=== PATIENT | female | born 1985 | race African-American/Black ===

== ENCOUNTER 2016-09-14 14:02 | Emergency (ER) | payer OTHER ==
[~2016-09-14] VITALS: Ht 180.3 cm; Wt 70.0 kg
[~2016-09-14 14:02] MED LIST: PREN-88 PO; PREN1TAB33
[2016-09-14] MEDS ORDERED: SODIUM CHLORIDE 0.9% 1,000 ML IV ONE ×2 (14:30→16:15)
[2016-09-14] MEDS ORDERED: FAMOTIDINE 20MG TABLET PO ONE (14:30)
[2016-09-14] MEDS ORDERED: ONDANSETRON 4MG ODT PO ONE (14:30)
[2016-09-14 15:02] LABS: BASOPHILS % 0.4 % (0.0-2.0); HEMATOCRIT. 42.5 % (36.0-48.0); HEMOGLOBIN. 14.6 g/dL (12.0-16.0); LYMPHOCYTES % 10.4 % (20.0-50.0); MEAN CORPUSCULAR HEMOGLOBIN 31.1 pg (28.0-32.0); MEAN PLATELET VOLUME 7.2 fl (7.4-10.4); MONOCYTES % 3.2 % (2.0-8.0); PLATELET 302 x1000/uL (130-400); RED BLOOD CELL COUNT 4.67 mill/uL (4.2-5.4); RED CELL DISTRIBUTION WIDTH 13.6 % (11.6-14.6)
[2016-09-14 15:16] LABS: CARBON DIOXIDE 24 mEq/L (21-32); CHLORIDE 109 mEq/L (98-107)
[2016-09-14] MEDS ORDERED: ONDANSETRON HCL 4MG/2ML VIAL IV NR (16:00)
[2016-09-14] MEDS ORDERED: METOCLOPRAMIDE HCL 10MG/2ML VIAL IV SCH (17:30)
[2016-09-14] MEDS ORDERED: FAMOTIDINE 20MG/2ML VIAL IV SCH (17:30)
[2016-09-14 20:55] VITALS: BP 113/67
== END 2016-09-14 20:57 | disposition home or self-care (01) ==
LOC: ER 14:49
DX: R00.1 Bradycardia, unspecified (principal); R11.2 Nausea with vomiting, unspecified; Z88.0 Allergy status to penicillin
CPT/HCPCS: 36415; 80053; 83690; 85025; 93005; 96361; 96374; 96375; 99285; J2405; J2765; J3490; J7030; Q0162; Z7610

== ENCOUNTER 2016-09-15 12:53 | Emergency (ER) | payer OTHER ==
[~2016-09-15] VITALS: Ht 162.6 cm; Wt 55.0 kg
[2016-09-15] MEDS ORDERED: SODIUM CHLORIDE 0.9% 1,000 ML IV ONE (14:03)
[2016-09-15] MEDS ORDERED: MAGNESIUM/ALUMINUM HYDROXIDE/SIMETHICONE 30ML UDC PO STA (14:03)
[2016-09-15] MEDS ORDERED: FAMOTIDINE 20MG/2ML VIAL IV STA (14:03)
[2016-09-15] MEDS ORDERED: ONDANSETRON HCL 4MG/2ML VIAL IV STA (14:03)
[2016-09-15] MEDS ORDERED: MORPHINE SULFATE 4 MG/ML CPJ (NOT FOR IM USE) IV STA (14:03)
[2016-09-15 15:01] LABS: CLARITY URINE CLOUDY (CLEAR); COLOR URINE YELLOW (YELLOW); GLUCOSE URINE NEGATIVE (NEGATIVE); KETONES URINE 3+ (NEGATIVE); LEUKOCYTE ESTERASE URINE NEGATIVE (NEGATIVE); NITRITE URINE NEGATIVE (NEGATIVE); OCCULT BLOOD URINE NEGATIVE (NEGATIVE); PROTEIN URINE 1+ (NEGATIVE); SPECIFIC GRAVITY URINE 1.031 (1.005-1.030)
[2016-09-15 15:03] LABS: INR 1.1; PROTHROMBIN TIME 11.4 sec
[2016-09-15 15:08] LABS: BASOPHILS % 0.4 % (0.0-2.0); HEMATOCRIT. 38.1 % (36.0-48.0); HEMOGLOBIN. 13.1 g/dL (12.0-16.0); LYMPHOCYTES % 15.9 % (20.0-50.0); MEAN CORPUSCULAR HEMOGLOBIN 31.3 pg (28.0-32.0); MEAN CORPUSCULAR VOLUME 90.9 fL (81.0-99.0); MEAN PLATELET VOLUME 7.6 fl (7.4-10.4); NEUTROPHILS % 75.7 % (40.0-76.0); PLATELET 267 x1000/uL (130-400); RED BLOOD CELL COUNT 4.19 mill/uL (4.2-5.4); RED CELL DISTRIBUTION WIDTH 13.3 % (11.6-14.6)
[2016-09-15 15:13] LABS: HCG SCREEN NEGATIVE
[2016-09-15 15:14] LABS: CARBON DIOXIDE 26 mEq/L (21-32); CHLORIDE 107 mEq/L (98-107); ETHANOL BLOOD < 10 mg/dL
[2016-09-15 15:15] LABS: TROPONIN I < 0.02 ng/mL (0.00-0.04)
[2016-09-15 15:35] LABS: *AMPHETAMINES SCREEN URINE NEGATIVE (NEGATIVE); *BARBITURATES SCREEN URINE NEGATIVE (NEGATIVE); *BENZODIAZEPINES SCREEN URINE NEGATIVE (NEGATIVE); *COCAINE SCREEN URINE NEGATIVE (NEGATIVE); METHADONE URINE SCREEN NEGATIVE (NEGATIVE); OPIATES URINE SCREEN NEGATIVE (NEGATIVE); PHENCYCLIDINE URINE SCREEN NEGATIVE (NEGATIVE)
[2016-09-15 15:41] LABS: CANNABINOID URINE SCREEN PRESUMTIVE POSITIVE (NEGATIVE)
[2016-09-15 18:30] VITALS: BP 135/88
== END 2016-09-15 18:55 | disposition home or self-care (01) ==
LOC: ER 13:45
DX: K29.20 Alcoholic gastritis without bleeding (principal); Z88.0 Allergy status to penicillin
CPT/HCPCS: 36415; 71010; 76700; 80053; 80305; 81001; 83880; 84484; 84703; 85025; 85610; 93005; 96361; 96374; 96375; 99285; G0482; J2270; J2405; J3490; J7030; Z7610

== ENCOUNTER 2016-09-16 10:17 | Emergency (ER) | payer OTHER ==
[~2016-09-16] VITALS: Ht 188 cm; Wt 75.0 kg
[2016-09-16] MEDS ORDERED: ONDANSETRON 4MG ODT PO STA (14:34)
[2016-09-16] MEDS ORDERED: VISCOUS LIDOCAINE 2% 15 ML UDC PO STA (14:34)
[2016-09-16] MEDS ORDERED: MAGNESIUM/ALUMINUM HYDROXIDE/SIMETHICONE 30ML UDC PO STA (14:34)
[2016-09-16 15:38] LABS: BASOPHILS % 0.6 % (0.0-2.0); HEMOGLOBIN. 13.4 g/dL (12.0-16.0); LYMPHOCYTES % 12.2 % (20.0-50.0); MEAN CORPUSCULAR HEMOGLOBIN 31.4 pg (28.0-32.0); MEAN CORPUSCULAR VOLUME 91.4 fL (81.0-99.0); MEAN PLATELET VOLUME 7.3 fl (7.4-10.4); MONOCYTES % 4.7 % (2.0-8.0); NEUTROPHILS % 82.5 % (40.0-76.0); PLATELET 258 x1000/uL (130-400); RED BLOOD CELL COUNT 4.26 mill/uL (4.2-5.4); RED CELL DISTRIBUTION WIDTH 12.8 % (11.6-14.6)
[2016-09-16 15:42] LABS: CHLORIDE 105 mEq/L (98-107)
[2016-09-16 15:48] LABS: CARBON DIOXIDE 24 mEq/L (21-32)
[2016-09-16 16:15] VITALS: BP 151/90
== END 2016-09-16 17:13 | disposition home or self-care (01) ==
LOC: ER 11:08
DX: R10.13 Epigastric pain (principal); R11.10 Vomiting, unspecified; F12.10 Cannabis abuse, uncomplicated; Z88.0 Allergy status to penicillin
CPT/HCPCS: 36415; 80053; 83690; 85025; 99284; Q0162

== ENCOUNTER 2018-12-02 12:03 | Emergency (ER) | payer MEDICAID, OTHER ==
[~2018-12-02] VITALS: Ht 188 cm; Wt 82.0 kg
[2018-12-02 13:31] VITALS: BP 112/78
[2018-12-02] MEDS ORDERED: IBUPROFEN 600MG TABLET PO STA (15:23)
[2018-12-02 16:14] LABS: CLARITY URINE CLEAR (CLEAR); COLOR URINE YELLOW (YELLOW); KETONES URINE 1+ (NEGATIVE); LEUKOCYTE ESTERASE URINE 2+ (NEGATIVE); NITRITE URINE NEGATIVE (NEGATIVE); OCCULT BLOOD URINE 1+ (NEGATIVE); PROTEIN URINE TRACE (NEGATIVE); SPECIFIC GRAVITY URINE 1.027 (1.005-1.030)
== END 2018-12-02 17:08 | disposition home or self-care (01) ==
LOC: ER 12:11
DX: R10.12 Left upper quadrant pain (principal); N30.00 Acute cystitis without hematuria; F12.10 Cannabis abuse, uncomplicated; F17.210 Nicotine dependence, cigarettes, uncomplicated; Z88.0 Allergy status to penicillin; F10.21 Alcohol dependence, in remission; Z87.828 Personal history of other (healed) physical injury and trauma
CPT/HCPCS: 73030; 81003; 81025; 87186; 99284

== ENCOUNTER 2019-12-02 09:23 | Emergency (ER) | payer MEDICAID, OTHER ==
[~2019-12-02] VITALS: Ht 188 cm; Wt 81.0 kg
[2019-12-02] MEDS ORDERED: FAMOTIDINE 20MG/2ML VIAL IV STA (10:05)
[2019-12-02] MEDS ORDERED: MORPHINE SULFATE 4 MG/ML CPJ (NOT FOR IM USE) IV STA (10:05)
[2019-12-02] MEDS ORDERED: MAGNESIUM/ALUMINUM HYDROXIDE/SIMETHICONE 30ML UDC PO STA (10:05)
[2019-12-02] MEDS ORDERED: ONDANSETRON HCL 4MG/2ML INJ IV ONE (10:15)
[2019-12-02] MEDS ORDERED: SODIUM CHLORIDE 0.9% 1,000 ML IV ONE (10:25)
[2019-12-02 10:48] LABS: BASOPHILS % 0.5 % (0.0-2.0); EOSINOPHILS % 0.4 % (0.0-5.0); HEMATOCRIT. 43.5 % (36.0-48.0); HEMOGLOBIN. 15.3 g/dL (12.0-16.0); LYMPHOCYTES % 16.6 % (20.0-50.0); MEAN CORPUSCULAR HEMOGLOBIN 32.1 pg (28.0-32.0); MEAN CORPUSCULAR VOLUME 91.5 fL (81.0-99.0); MEAN PLATELET VOLUME 7.2 fl (7.4-10.4); MONOCYTES % 7.5 % (2.0-8.0); PLATELET 381 x1000/uL (130-400); RED BLOOD CELL COUNT 4.75 mill/uL (4.2-5.4); RED CELL DISTRIBUTION WIDTH 13.2 % (11.6-14.6)
[2019-12-02 10:55] LABS: CHLORIDE 106 mEq/L (98-107)
[2019-12-02 10:58] LABS: INR 1.1; PROTHROMBIN TIME 11.4 sec (9.6-11.0)
[2019-12-02 13:05] LABS: CLARITY URINE CLOUDY (CLEAR); COLOR URINE YELLOW (YELLOW); KETONES URINE 3+ (NEGATIVE); LEUKOCYTE ESTERASE URINE 2+ (NEGATIVE); NITRITE URINE NEGATIVE (NEGATIVE); OCCULT BLOOD URINE NEGATIVE (NEGATIVE); PH URINE 6.5 (4.5-8.0); PROTEIN URINE 1+ (NEGATIVE); SPECIFIC GRAVITY URINE 1.028 (1.005-1.030)
[2019-12-02] MEDS: POTASSIUM CHLORIDE 20MEQ TABLET SR PO NR ×2 (14:16→15:05)
[2019-12-02 15:01] VITALS: BP 137/65
== END 2019-12-02 15:48 | disposition home or self-care (01) ==
LOC: ER 09:41
DX: K29.70 Gastritis, unspecified, without bleeding (principal); K21.9 Gastro-esophageal reflux disease without esophagitis; I10 Essential (primary) hypertension; N39.0 Urinary tract infection, site not specified; F10.20 Alcohol dependence, uncomplicated; Y90.0 Blood alcohol level of less than 20 mg/100 ml; Z88.0 Allergy status to penicillin
CPT/HCPCS: 36415; 80053; 81003; 81025; 83690; 85025; 85610; 87086; 93005; 96361; 96374; 96375; 99285; J2270; J2405; J3490; J7030

== ENCOUNTER 2021-05-02 16:42 | Emergency (ER) | payer MEDICAID ==
[~2021-05-02] VITALS: Ht 188 cm; Wt 82.0 kg
[2021-05-02] MEDS ORDERED: KETOROLAC 30MG/ML VIAL IV STA (20:42)
[2021-05-02] MEDS ORDERED: ONDANSETRON HCL 4MG/2ML INJ IV STA (20:42)
[2021-05-02] MEDS ORDERED: SODIUM CHLORIDE 0.9% 1,000 ML IV ONE (20:45)
[2021-05-02 21:43] LABS: BASOPHILS % 1.1 % (0.0-2.0); HEMATOCRIT. 41.7 % (36.0-48.0); HEMOGLOBIN. 14.5 g/dL (12.0-16.0); LYMPHOCYTES % 33.3 % (20.0-50.0); MEAN CORPUSCULAR HEMOGLOBIN 32.3 pg (28.0-32.0); MEAN CORPUSCULAR VOLUME 92.6 fL (81.0-99.0); MEAN PLATELET VOLUME 7.3 fl (7.4-10.4); MONOCYTES % 6.2 % (2.0-8.0); NEUTROPHILS % 57.4 % (40.0-76.0); PLATELET 383 x1000/uL (130-400); RED BLOOD CELL COUNT 4.51 mill/uL (4.2-5.4); RED CELL DISTRIBUTION WIDTH 13.1 % (11.6-14.6)
[2021-05-02 21:52] LABS: CHLORIDE 108 mEq/L (98-107)
[2021-05-02 21:55] LABS: HCG SCREEN NEGATIVE
[2021-05-02] MEDS ORDERED: MORPHINE SULFATE 4 MG/ML CPJ (NOT FOR IM USE) IV ONE (22:00)
[2021-05-02 23:39] LABS: CLARITY URINE CLEAR (CLEAR); COLOR URINE YELLOW (YELLOW); KETONES URINE NEGATIVE (NEGATIVE); LEUKOCYTE ESTERASE URINE 2+ (NEGATIVE); NITRITE URINE NEGATIVE (NEGATIVE); OCCULT BLOOD URINE NEGATIVE (NEGATIVE); PROTEIN URINE NEGATIVE (NEGATIVE); SPECIFIC GRAVITY URINE 1.027 (1.005-1.030); UROBILINOGEN URINE 0.2 E.U./dL (0.2-1.0)
[2021-05-03] MEDS ORDERED: CEFTRIAXONE 1 G PREMIX 50 ML IV ONE
[2021-05-03] MEDS ORDERED: CEFP200T13 MT (00:10)
[2021-05-03] MEDS ORDERED: CEFTRIAXONE 1,000 MG in DEXTROSE 5% WATER 50 ML IV SCH (00:15)
[2021-05-03] MEDS ORDERED: IBUP-2028 MT (00:17)
[2021-05-03] MEDS ORDERED: MORP15TA67 MT (00:17)
[2021-05-03 00:40] VITALS: BP 105/68
[2021-05-05 04:09] LABS: NEISSERIA GONORRHOEAE NAA Positive (Negative)
== END 2021-05-03 00:41 | disposition home or self-care (01) ==
LOC: ER 16:42
DX: N12 Tubulo-interstitial nephritis, not specified as acute or chronic (principal); Z79.899 Other long term (current) drug therapy; Z88.0 Allergy status to penicillin
CPT/HCPCS: 36415; 80053; 81003; 81025; 83690; 84703; 85025; 87086; 87491; 87591; 96361; 96365; 96375; 99284; J0696; J1885; J2270; J2405; J7030; J7060

== ENCOUNTER 2021-05-05 09:07 | Emergency (ER) | payer MEDICAID ==
[~2021-05-05] VITALS: Ht 177.8 cm; Wt 93.0 kg
[~2021-05-05 09:07] MED LIST changes: +CEFP200T13 MT; +IBUP-2028 MT; +MORP15TA67 MT
[2021-05-05] MEDS: MORPHINE SULFATE 4 MG/ML CPJ (NOT FOR IM USE) IV ONE (10:04)
[2021-05-05] MEDS: ONDANSETRON HCL 4MG/2ML INJ IV ONE ×2 (10:05→19:41)
[2021-05-05] MEDS: SODIUM CHLORIDE 0.9% 1,000 ML IV ONE (10:09)
[2021-05-05 10:20] LABS: BASOPHILS % 0.4 % (0.0-2.0); EOSINOPHILS % 0.6 % (0.0-5.0); HEMATOCRIT. 40.6 % (36.0-48.0); HEMOGLOBIN. 14.4 g/dL (12.0-16.0); LYMPHOCYTES % 17.5 % (20.0-50.0); MEAN CORPUSCULAR HEMOGLOBIN 32.4 pg (28.0-32.0); MEAN CORPUSCULAR VOLUME 91.1 fL (81.0-99.0); MEAN PLATELET VOLUME 7.5 fl (7.4-10.4); MONOCYTES % 5.5 % (2.0-8.0); PLATELET 399 x1000/uL (130-400); RED BLOOD CELL COUNT 4.45 mill/uL (4.2-5.4)
[2021-05-05 10:26] LABS: CHLORIDE 109 mEq/L (98-107)
[2021-05-05 10:42] LABS: CLARITY URINE TURBID (CLEAR); COLOR URINE RED (YELLOW); KETONES URINE TRACE (NEGATIVE); LEUKOCYTE ESTERASE URINE 2+ (NEGATIVE); NITRITE URINE POSITIVE (NEGATIVE); OCCULT BLOOD URINE 3+ (NEGATIVE); PH URINE >=9.0 (4.5-8.0); PROTEIN URINE 2+ (NEGATIVE); UROBILINOGEN URINE 0.2 E.U./dL (0.2-1.0)
[2021-05-05 10:46] LABS: HCG SCREEN NEGATIVE
[2021-05-05] MEDS: FAMOTIDINE 20MG/2ML VIAL IV ONE (10:47)
[2021-05-05] MEDS: METOCLOPRAMIDE HCL 10MG/2ML VIAL IV ONE (11:09)
[2021-05-05] MEDS: CEFTRIAXONE 1 G PREMIX 50 ML IV ONE (11:19)
[2021-05-05] MEDS ORDERED: IOHEXOL-300 100 ML BOTTLE ONE (12:32)
[2021-05-05] MEDS: KETOROLAC 15MG/ML VIAL IV NR (18:25)
[2021-05-05 21:57] VITALS: BP 110/58
== END 2021-05-05 21:46 | disposition short-term general hospital (02) ==
LOC: ER 09:07
DX: N12 Tubulo-interstitial nephritis, not specified as acute or chronic (principal); Z20.822 Contact with and (suspected) exposure to COVID-19; Z88.0 Allergy status to penicillin
CPT/HCPCS: 36415; 74177; 76830; 76856; 80053; 81003; 83605; 83690; 84703; 85025; 87040; 87086; 87426; 96361; 96365; 96375; 96376; 99291; J0696; J1885; J2270; J2405; J2765; J3490; J7030; Q9967; Z7610

== ENCOUNTER 2022-04-29 19:34 | Emergency (ER) | payer MEDICAID ==
[~2022-04-29] VITALS: Ht 188 cm; Wt 88.9 kg
[2022-04-29 19:58] VITALS: BP 115/73
[2022-04-29] MEDS ORDERED: GUAI600T26 MT (21:49)
[2022-04-29] MEDS ORDERED: ACET-2708 MT (21:49)
[2022-04-29] MEDS ORDERED: AZIT500T8 MT (21:49)
[2022-04-29] MEDS ORDERED: AZITHROMYCIN 500 MG TABLET PO ONE (22:00)
[2022-04-29] MEDS ORDERED: ACETAMINOPHEN 325MG TABLET PO ONE (22:00)
[2022-04-29] MEDS ORDERED: GUAIFENESIN 600MG ER TABLET PO ONE (22:00)
== END 2022-04-29 22:08 | disposition home or self-care (01) ==
LOC: ER 19:34
DX: H66.91 Otitis media, unspecified, right ear (principal); Z88.0 Allergy status to penicillin
CPT/HCPCS: 81025; 99283

== ENCOUNTER 2022-05-04 07:57 | Emergency (ER) | payer MEDICAID ==
[~2022-05-04] VITALS: Ht 182.9 cm; Wt 98.0 kg
[~2022-05-04 07:57] MED LIST changes: +ACET-2708 MT; +AZIT500T8 MT; +GUAI600T26 MT
[2022-05-04 08:10] VITALS: BP 120/83
[2022-05-04] MEDS ORDERED: CLIN-194 MT (09:08)
== END 2022-05-04 09:56 | disposition home or self-care (01) ==
LOC: ER 07:57
DX: H66.91 Otitis media, unspecified, right ear (principal); Z88.0 Allergy status to penicillin; Z79.899 Other long term (current) drug therapy
CPT/HCPCS: 99281

== ENCOUNTER 2023-03-22 19:55 | Emergency (ER) | payer MEDICAID ==
[~2023-03-22] VITALS: Ht 188 cm; Wt 74.0 kg
[~2023-03-22 19:55] MED LIST changes: +CLIN-194 MT
[2023-03-22 20:11] VITALS: TEMP 98.4; O2SAT 100
[2023-03-22] MEDS ORDERED: HYDROCODONE/ACETAMINOPHEN 5/325MG TABLET PO STA (20:18)
[2023-03-22 20:46] LABS: BASOPHILS % 1.2 % (0.0-2.0); EOSINOPHILS % 1.5 % (0.0-5.0); HEMATOCRIT. 41.9 % (36.0-48.0); HEMOGLOBIN. 14.1 g/dL (12.0-16.0); LYMPHOCYTES % 29.9 % (20.0-50.0); MEAN CORPUSCULAR HGB CONC 33.7 g/dL (31.0-37.0); MEAN CORPUSCULAR VOLUME 94.7 fL (81.0-99.0); MEAN PLATELET VOLUME 7.6 fl (7.4-10.4); MONOCYTES % 7.7 % (2.0-8.0); NEUTROPHILS % 59.7 % (40.0-76.0); PLATELET 393 x1000/uL (130-400); RED BLOOD CELL COUNT 4.42 mill/uL (4.2-5.4); RED CELL DISTRIBUTION WIDTH 12.5 % (11.6-14.6); WHITE BLOOD COUNT 11.3 x1000/uL (4.5-11.0)
[2023-03-22 20:53] LABS: PROTHROMBIN TIME 10.4 sec (9.6-11.0)
[2023-03-22 20:57] LABS: ALANINE AMINOTRANSFERASE 8 IU/L (10-49); ALBUMIN 4.5 g/dL (3.2-4.8); ASPARTATE AMINOTRANSFERASE 12 IU/L (<34); BILIRUBIN TOTAL 0.2 mg/dL (0.1-1.0); CALCIUM 9.4 mg/dL (8.7-10.4); CARBON DIOXIDE 22 mEq/L (21-32); CHLORIDE 107 mEq/L (98-107); CREATININE 0.9 mg/dL (0.6-1.0); GLUCOSE 87 mg/dL (70-105); POTASSIUM 3.6 mEq/L (3.5-5.1); PROTEIN TOTAL 7.5 g/dL (6.0-8.3); SODIUM 137 mEq/L (136-145); UREA NITROGEN BLOOD 10 mg/dL (9-23)
[2023-03-22 21:38] LABS: CLARITY URINE CLOUDY (CLEAR); COLOR URINE YELLOW (YELLOW); GLUCOSE URINE NEGATIVE (NEGATIVE); KETONES URINE TRACE (NEGATIVE); LEUKOCYTE ESTERASE URINE NEGATIVE (NEGATIVE); NITRITE URINE NEGATIVE (NEGATIVE); OCCULT BLOOD URINE NEGATIVE (NEGATIVE); PROTEIN URINE NEGATIVE (NEGATIVE); SPECIFIC GRAVITY URINE 1.023 (1.005-1.030); UROBILINOGEN URINE 0.2 E.U./dL (0.2-1.0)
[2023-03-22 22:03] LABS: BACTERIA URINE 2+; SQUAMOUS EPITHELIAL CELL URINE 2+ /lpf (RARE/1+)
[2023-03-22 22:04] LABS: RBC URINE 0-2 /hpf (0-2); WBC URINE 0-2 /hpf (0-2)
[2023-03-23] MEDS: HYDROCODONE/ACETAMINOPHEN 5/325MG TABLET PO NR ×2 (00:56→00:58)
[2023-03-23 00:58] VITALS: BP 124/84; PULSE 64; RESP 18
== END 2023-03-23 01:22 | disposition home or self-care (01) ==
LOC: ER 19:55
DX: R10.32 Left lower quadrant pain (principal); F10.10 Alcohol abuse, uncomplicated; Z88.0 Allergy status to penicillin; Y90.9 Presence of alcohol in blood, level not specified
CPT/HCPCS: 36415; 74176; 76830; 76856; 80053; 81003; 81025; 85025; 99284

== ENCOUNTER 2023-12-25 06:10 | Emergency (ER) | payer MEDICAID ==
[~2023-12-25] VITALS: Ht 188 cm; Wt 80.0 kg
[2023-12-25 06:13] VITALS: O2SAT 100
[2023-12-25 06:16] VITALS: BP 152/80; PULSE 81; RESP 19; TEMP 98.3; O2SAT 99
[2023-12-25 08:20] LABS: CHLORIDE 108 mEq/L (98-107); POTASSIUM 4.1 mEq/L (3.5-5.1); SODIUM 138 mEq/L (136-145)
[2023-12-25 08:21] LABS: CARBON DIOXIDE 26 mEq/L (21-32)
[2023-12-25 08:22] LABS: CALCIUM 9.4 mg/dL (8.7-10.4)
[2023-12-25 08:23] LABS: EOSINOPHILS % 0.7 % (0.0-5.0); HEMATOCRIT. 44.2 % (36.0-48.0); HEMOGLOBIN. 14.8 g/dL (12.0-16.0); LYMPHOCYTES % 18.9 % (20.0-50.0); MEAN CORPUSCULAR HEMOGLOBIN 31.7 pg (28.0-32.0); MEAN CORPUSCULAR HGB CONC 33.5 g/dL (31.0-37.0); MEAN CORPUSCULAR VOLUME 94.7 fL (81.0-99.0); MEAN PLATELET VOLUME 7.3 fl (7.4-10.4); MONOCYTES % 5.9 % (2.0-8.0); NEUTROPHILS % 73.5 % (40.0-76.0); PLATELET 359 x1000/uL (130-400); RED BLOOD CELL COUNT 4.67 mill/uL (4.2-5.4); RED CELL DISTRIBUTION WIDTH 13.3 % (11.6-14.6); WHITE BLOOD COUNT 10.7 x1000/uL (4.5-11.0)
[2023-12-25 08:26] LABS: CREATININE 0.8 mg/dL (0.6-1.0); GLUCOSE 96 mg/dL (70-105); UREA NITROGEN BLOOD 10 mg/dL (9-23)
[2023-12-25 09:23] LABS: CLARITY URINE CLEAR (CLEAR); COLOR URINE YELLOW (YELLOW); GLUCOSE URINE NEGATIVE (NEGATIVE); KETONES URINE NEGATIVE (NEGATIVE); LEUKOCYTE ESTERASE URINE NEGATIVE (NEGATIVE); NITRITE URINE NEGATIVE (NEGATIVE); OCCULT BLOOD URINE NEGATIVE (NEGATIVE); PROTEIN URINE NEGATIVE (NEGATIVE); SPECIFIC GRAVITY URINE 1.021 (1.005-1.030); UROBILINOGEN URINE 0.2 E.U./dL (0.2-1.0)
[2023-12-25] MEDS ORDERED: ONDA4TAB50 MT (10:00)
[2023-12-25] MEDS: ONDANSETRON 4MG ODT PO ONE (10:13)
== END 2023-12-25 11:05 | disposition home or self-care (01) ==
LOC: ER 06:41
DX: R11.2 Nausea with vomiting, unspecified (principal); R19.7 Diarrhea, unspecified; Z88.0 Allergy status to penicillin; Z79.899 Other long term (current) drug therapy
CPT/HCPCS: 99283; 80048; 81003; 81025; 85025; 36415; Q0162

== ENCOUNTER 2024-02-01 15:06 | Emergency (ER) | payer MEDICAID ==
[~2024-02-01] VITALS: Ht 172.7 cm; Wt 81.0 kg
[~2024-02-01 15:06] MED LIST changes: +ONDA4TAB50 MT
[2024-02-01 15:08] VITALS: BP 131/77; PULSE 80; RESP 18; TEMP 97.9; O2SAT 98
== END 2024-02-01 18:24 | disposition left against medical advice (07) ==
LOC: ER 15:06
DX: M54.2 Cervicalgia (principal); Z53.21 Procedure and treatment not carried out due to patient leaving prior to being seen by health care provider

== ENCOUNTER 2024-04-09 16:56 | Emergency (ER) | payer MEDICAID ==
[~2024-04-09] VITALS: Ht 188 cm; Wt 73.0 kg
[2024-04-09 17:24] VITALS: O2SAT 100
[2024-04-09] MEDS ORDERED: CYCLOBENZAPRINE 10MG TABLET PO NR (22:45)
[2024-04-09] MEDS ORDERED: KETOROLAC 30MG/ML VIAL IM NR (22:45)
[2024-04-09 23:30] LABS: CLARITY URINE CLEAR (CLEAR); COLOR URINE YELLOW (YELLOW); GLUCOSE URINE NEGATIVE (NEGATIVE); KETONES URINE NEGATIVE (NEGATIVE); LEUKOCYTE ESTERASE URINE NEGATIVE (NEGATIVE); NITRITE URINE NEGATIVE (NEGATIVE); OCCULT BLOOD URINE NEGATIVE (NEGATIVE); PH URINE 5.5 (4.5-8.0); PROTEIN URINE NEGATIVE (NEGATIVE); SPECIFIC GRAVITY URINE 1.024 (1.005-1.030); UROBILINOGEN URINE 0.2 E.U./dL (0.2-1.0)
[2024-04-09] MEDS ORDERED: NAPR-1176 MT (23:56)
[2024-04-09] MEDS ORDERED: CYCL10TA21 MT (23:56)
[2024-04-10] MEDS: KETOROLAC 30MG/ML VIAL IM ONE (00:16)
[2024-04-10] MEDS: CYCLOBENZAPRINE 10MG TABLET PO ONE (00:17)
[2024-04-10 00:23] VITALS: BP 129/79; PULSE 60; RESP 19; TEMP 36.8; O2SAT 100
== END 2024-04-10 00:29 | disposition home or self-care (01) ==
LOC: ER 16:56
DX: M54.50 Low back pain, unspecified (principal); Z88.0 Allergy status to penicillin
CPT/HCPCS: 99283; 81003; 81025; 96372; J1885

== ENCOUNTER 2024-11-22 09:03 | Emergency (ER) | payer MEDICAID ==
[~2024-11-22] VITALS: Ht 188 cm; Wt 127.0 kg
[~2024-11-22 09:03] MED LIST changes: +CYCL10TA21 MT; +NAPR-1176 MT
[2024-11-22 09:10] VITALS: O2SAT 100
[2024-11-22] MEDS ORDERED: IBUP-1455 MT (11:01)
[2024-11-22] MEDS ORDERED: ACET-2708 MT (11:01)
[2024-11-22 11:25] VITALS: BP 130/88; PULSE 90; RESP 15; TEMP 36.7; O2SAT 100
== END 2024-11-22 11:25 | disposition home or self-care (01) ==
LOC: ER 09:03
DX: M25.562 Pain in left knee (principal); M79.676 Pain in unspecified toe(s); Z98.890 Other specified postprocedural states; Z88.0 Allergy status to penicillin
CPT/HCPCS: 29505; 73560; 81025; 99283

== ENCOUNTER 2025-02-23 18:59 | Emergency (ER) | payer MEDICAID ==
[~2025-02-23] VITALS: Ht 185.4 cm; Wt 95.1 kg
[~2025-02-23 18:59] MED LIST changes: +IBUP-1455 MT
[2025-02-23 19:34] VITALS: O2SAT 98
[2025-02-23] MEDS ORDERED: DEXAMETHASONE 0.5MG/5ML ORAL SYR PO ONE (20:00)
[2025-02-23] MEDS: DEXAMETHASONE 10 MG/ML VIAL PO NR (20:23)
[2025-02-23] MEDS: ACETAMINOPHEN 325MG TABLET PO ONE (21:00)
[2025-02-23] MEDS ORDERED: AZIT500T8 MT (21:35)
[2025-02-23 21:48] VITALS: BP 113/76; PULSE 63; RESP 16; TEMP 36.8; O2SAT 100
== END 2025-02-23 21:51 | disposition home or self-care (01) ==
LOC: ER 18:59
DX: J02.9 Acute pharyngitis, unspecified (principal); Z88.0 Allergy status to penicillin
CPT/HCPCS: 99283; 87430; 87070; J1100; J8540